=== PATIENT | male | born 2000 | race Caucasian/White ===

== ENCOUNTER → 2020-08-06 12:09 | Outpatient (CLI) | payer BC, SELFPAY | PROVIDERS: Visit Provider Student in an Organized Health Care Education/Training Program | DX: R30.0 Dysuria (principal) | CPT/HCPCS: 87077; 87086 ==

== ENCOUNTER 2021-01-06 01:18 | Emergency (ER) | payer OTHER, MEDICAID, SELFPAY ==
--- NOTE | 2021-01-06 01:21 | ED_ITS ---
HPI - Chest Pain General Chief Complaint: Chest Pain Stated Complaint: Shortness of breath, bad chest pain vertigo Time Seen by Provider: 01/06/21 01:20 Source: patient and family Mode of arrival: Ambulatory Limitations: no limitations History of Present Illness HPI narrative: 20-year-old (he/him) presents with mother and chief complaint of a sharp and stabbing chest pain that started this evening at about 7:00 p.m.. He states that the pain is sharp and stabbing, made worse by lying flat, moving and taking a deep breath. Pain is improved by sitting still. Patient denies any radiation of pain nor history of the same. Patient denies any recent history, history of blood clots or cancer. He does take control however. Patient denies any significant shortness of breath, nausea or vomiting. Patient denies any relation to exertion or food and drink. Related Data Home Medications Medication Instructions Recorded Confirmed adderrall PO 08/06/20 08/06/20 androgel PO DAILY 08/06/20 08/06/20 finasteride PO 08/06/20 08/06/20 Previous Rx's Medication Instructions Recorded colchicine 0.6 mg PO BID #60 cap 01/06/21 ibuprofen 600 mg PO TID #90 tab 01/06/21 Allergies Allergy/AdvReac Type Severity Reaction Status Date / Time sulfamethoxazole Allergy Severe Anaphylaxis Verified 08/06/20 11:32 [From Bactrim] trimethoprim [From Bactrim] Allergy Severe Anaphylaxis Verified 08/06/20 11:32 Review of Systems Constitutional Constitutional: Denies chills, Denies fatigue, Denies fever(s), Denies frequent falls, Denies lethargy and Denies weakness Eyes Eyes: Denies change in vision, Denies eye discharge, Denies irritation and Denies loss of vision ENT Ears, Nose, Mouth, and Throat: Denies change in voice, Denies dizziness, Denies neck pain, Denies sore throat and Denies throat swelling Cardiovascular Cardiovascular: Reports chest pain, Denies irregular heart rhythm, Denies lightheadedness, Denies palpitations, Denies dyspnea, Denies dyspnea on exertion and Denies orthopnea Respiratory Respiratory: Denies cough, Denies dyspnea, Denies dyspnea on exertion and Denies wheezing Gastrointestinal Gastrointestinal: Denies abdominal pain, Denies change in bowel habits, Denies diarrhea, Denies nausea and Denies vomiting Musculoskeletal Musculoskeletal: Denies neck pain and Denies numbness Integumentary/Breasts Skin/Breast: Denies pruritus, Denies erythema, Denies rash and Denies wounds Neurologic Neurologic: Denies behavioral changes, Denies confusion, Denies dizziness, Denies frequent falls, Denies loss of vision, Denies numbness and Denies weakness Psychiatric Psychiatric: Denies anxiety, Denies behavioral changes, Denies confusion, Denies depression, Denies homicidal ideation and Denies suicidal ideation Endocrine Endocrine: Denies fatigue, Denies flushing and Denies palpitations Hematologic/Lymphatic Hematologic/Lymphatic: Denies easy bruising Allergic/Immunologic Allergic/Immunologic: Denies urticaria, Denies throat swelling and Denies wheezing Patient History Social History Smoking Status: Never smoker Smoking Status: Never smoker Exam Narrative Exam Narrative: GENERAL: [20] year old patient appears stated age. Well- nourished, well-developed patient, in mild distress. HEAD: Atraumatic. Normocephalic. EYES: Pupils equal round and reactive. Extraocular motions intact. No scleral icterus. No injection or drainage. ENT: Nose without bleeding, purulent drainage. Throat without erythema, tonsillar hypertrophy or exudate. Airway patent. NECK: Trachea midline. Non tender CARDIOVASCULAR: Regular rate and rhythm without murmurs, gallops, or rubs. RESPIRATORY: Clear to auscultation. Breath sounds equal bilaterally. No wheezes, rales, or rhonchi. GASTROINTESTINAL: Abdomen soft, non-tender, nondistended. EXTREMITIES: No edema or joint tenderness. BACK: Nontender without deformity or crepitance. No flank tenderness. NEURO: AOx3. SKIN: No rash or erythema of visible areas Initial Vital Signs Initial Vital Signs: Vital Signs Temperature 97.7 F 01/06/21 01:26 Pulse Rate 90 01/06/21 01:26 Respiratory Rate 20 01/06/21 01:26 Blood Pressure 142/77 H 01/06/21 01:26 Pulse Oximetry 95 01/06/21 01:26 Course Course Course Narrative: Patient is feeling much better after above-stated therapies. We have had extensive discussion about potential diagnoses including but not limited to pulmonary embolism (thought very unlikely given negative D-dimer), pneumonia (thought unlikely given lack of fever, productive cough or findings on chest x-ray or exam), pleurisy, GI disease including gallbladder or pancreatitis (thought unlikely given lack of reproducible pain on palpation or lab findings), versus cardiac ischemia thought unlikely due to lack of ischemic components to physical exam, EKG and negative troponin. Extensive discussion with the patient about the most likely diagnosis and he and mother express unde rstanding and agreement with the diagnosis and plan. They have been given return precautions and have a questions answered to their apparent satisfaction. Orders Ordered: ED Orders 01/06/21 01:31 C-Reactive Protein Quant Stat 01/06/21 01:32 XR chest 1V Stat Complete Blood Count AUTO DIFF Stat EKG-12 Lead Stat 01/06/21 01:35 Comprehensive Metabolic Panel Stat D Dimer Stat Erythrocyte Sedimentation Rate Stat Lipase Stat NT-proBNP (BNP-Adult 18+) Stat Partial Thromboplastin Time Stat Prothrombin Time INR Stat Troponin & CK Cardiac Panel Stat Discontinued Medications Colchicine (Colchicine 0.6 Mg Tablet) 0.6 mg PO NOW ONE Stop: 01/06/21 02:08 Last Admin: 01/06/21 02:21 Dose: 0.6 mg Documented by: Sodium Chloride (Normal Saline 0.9%) 1,000 mls @ 1,000 mls/hr IV BOLUS ONE Stop: 01/06/21 02:30 Last Admin: 01/06/21 01:46 Dose: 1,000 mls/hr Documented by: Ketorolac Tromethamine (Ketorolac 60 Mg/2 Ml Vial) 15 mg IV NOW ONE Stop: 01/06/21 01:32 Last Admin: 01/06/21 01:46 Dose: 15 mg Documented by: Vital Signs Vital signs: Vital Signs - 8 hr 01/06/21 01:26 01/06/21 01:38 01/06/21 02:00 Temperature 97.7 F Pulse Rate 90 87 73 Respiratory Rate 20 9 L 17 Blood Pressure 142/77 H Pulse Oximetry 95 98 98 01/06/21 02:30 01/06/21 02:46 Temperature Pulse Rate 72 Respiratory Rate 15 Blood Pressure 101/56 L Pulse Oximetry 99 MDM - Chest Pain Lab Data Result diagrams: 01/06/21 01:35 01/06/21 01:35 Labs: Lab Results 04/27/21 04/27/21 04/27/21 Range/Units 01:35 01:35 01:35 WBC 10.6 (4.5-11.0) X10^3/uL RBC 4.88 (4.5-5.9) X10^6/uL Hgb 13.3 L (13.5-17.5) g/dL Hct 40.4 L (41-53) % MCV 82.8 (80-100) fL MCH 27.3 (26-34) PG MCHC 33.0 (30-36) % RDW 13.2 (11.6-14.8) % Plt Count 364 (150-400) X10^3/uL Neut % (Auto) 61.3 (50-75) % Lymph % (Auto) 30.3 (25-40) % Chaves % (Auto) 6.8 (3-14) % Eos % (Auto) 0.6 L (2-4) % Baso % (Auto) 1.0 (0-2) % Neut # (Auto) 6500 (9240-2013) /uL Lymph # (Auto) 3200 (6473-0733) /uL Chaves # (Auto) 700 (0-900) /uL Eos # (Auto) 100 (0-450) /uL Baso # (Auto) 100 (0-100) /uL ESR 29 H (0-15) MM/HR PT (10.1-12.7) SECONDS INR (0.9-1.3) APTT (26.4-36.2) SECONDS D-Dimer (<230) ng/mL Sodium (137-145) mmol/L Potassium (3.4-5.1) mmol/L Chloride (98-107) mmol/L Carbon Dioxide (22-32) mmol/L BUN (9-20) mg/dL Creatinine (0.66-1.25) mg/dL Estimated GFR (>60) mL/min BUN/Creatinine Ratio (6-22) Glucose (70-100) mg/dL Calcium (8.4-10.2) mg/dL Total Bilirubin (0.2-1.3) mg/dL AST (17-59) IU/L ALT (<50) IU/L Alkaline Phosphatase (38-126) U/L Total Creatine Kinase (55-170) U/L CK-MB (CK-2) CK-MB (CK-2) Rel Index Troponin I (0.01-0.034) ng/mL C-Reactive Protein 2.2 H (<1.0) mg/dL NT-Pro-B Natriuret Pep (<125) pg/mL Total Protein (6.3-8.2) g/dL Albumin (3.5-5.0) g/dL Globulin (1.7-4.1) g/dL Albumin/Globulin Ratio (1.0-2.8) Lipase (23-300) U/L 01/06/21 01/06/21 01/06/21 Range/Units 01:35 01:35 01:35 WBC (4.5-11.0) X10^3/uL RBC (4.5-5.9) X10^6/uL Hgb (13.5-17.5) g/dL Hct (41-53) % MCV (80-100) fL MCH (26-34) PG MCHC (30-36) % RDW (11.6-14.8) % Plt Count (150-400) X10^3/uL Neut % (Auto) (50-75) % Lymph % (Auto) (25-40) % Chaves % (Auto) (3-14) % Eos % (Auto) (2-4) % Baso % (Auto) (0-2) % Neut # (Auto) (5807-3126) /uL Lymph # (Auto) (7479-8235) /uL Chaves # (Auto) (0-900) /uL Eos # (Auto) (0-450) /uL Baso # (Auto) (0-100) /uL ESR (0-15) MM/HR PT 12.7 (10.1-12.7) SECONDS INR 1.1 (0.9-1.3) APTT 33 (26.4-36.2) SECONDS D-Dimer < 200 (<230) ng/mL Sodium 139 (137-145) mmol/L Potassium 3.8 (3.4-5.1) mmol/L Chloride 106 (98-107) mmol/L Carbon Dioxide 24 (22-32) mmol/L BUN 9 (9-20) mg/dL Creatinine 0.71 (0.66-1.25) mg/dL Estimated GFR > 60.0 (>60) mL/min BUN/Creatinine Ratio 12.7 (6-22) Glucose 88 (70-100) mg/dL Calcium 9.3 (8.4-10.2) mg/dL Total Bilirubin 0.3 (0.2-1.3) mg/dL AST 26 (17-59) IU/L ALT 32 (<50) IU/L Alkaline Phosphatase 64 (38-126) U/L Total Creatine Kinase 33 L (55-170) U/L CK-MB (CK-2) TNP CK-MB (CK-2) Rel Index TNP Troponin I < 0.012 (0.01-0.034) ng/mL C-Reactive Protein (<1.0) mg/dL NT-Pro-B Natriuret Pep 38 (<125) pg/mL Total Protein 7.9 (6.3-8.2) g/dL Albumin 4.4 (3.5-5.0) g/dL Globulin 3.5 (1.7-4.1) g/dL Albumin/Globulin Ratio 1.3 (1.0-2.8) Lipase 63 (23-300) U/L Imaging Data Chest x-ray: Radiologist's Impression: No acute process ECG Data Interpretation: EKG is normal sinus rhythm rate [ 94] and free of any signs of ischemia or ectopy. Minor widespread ST elevation with associated VT depressions. No T wave inversions Discharge Plan Departure Patient Disposition: Home Clinical Impression: Pericarditis Qualifiers: Pericarditis type: unspecified type Chronicity: acute Qualified Code(s): I30.9 - Acute pericarditis, unspecified Instructions: Pericarditis -- Adult Activity Restrictions/Additional Instructions: *You have been diagnosed with [acute chest pain, your story, labs, EKG are most consistent with pericarditis] *What to do: *Take medications as directed: Prescriptions sent to [facility] *Follow up with your primary care provider in 2-3 days, call for an appointment. Let them know you were seen in the Emergency Department and that we ask that you be seen in follow up *Return to ER if you should have any new, worsening or concerning symptoms, such as [increasing pain, shortness of breath, fever, shaking chills or other bothersome symptoms] Prescriptions: New colchicine 0.6 mg capsule 0.6 mg PO BID Qty: 60 RF: 0 ibuprofen 600 mg tablet 600 mg PO TID Qty: 90 RF: 0 No Action adderrall 30 mg tablet PO RF: 0 finasteride 1 mg tablet PO RF: 0 androgel 40.5 mg tablet PO DAILY RF: 0 Referrals: Miscellaneous,Doctor, [Primary Care Provider] -
[2021-01-06 01:26] VITALS: BP 142/77; PULSE 90; RESP 20; TEMP 36.5; O2SAT 95; BMI 32.5
--- NOTE | 2021-01-06 01:32 | DI.RAD.S_ITS ---
PROCEDURE: XR CHEST 1V INDICATIONS: chest pain TECHNIQUE: One view of the chest was acquired. COMPARISON: None. FINDINGS: Surgical changes and devices: None. Lungs and pleura: Lungs are clear. No pleural effusions or pneumothorax. Mediastinum: Mediastinal contours appear normal. Heart size is normal. Bones and chest wall: No suspicious bony lesions. Overlying soft tissues appear unremarkable. IMPRESSION: Normal for age, source of current chest pain symptoms is not seen. Dictated by: Demetrio Plascencia M.D. on 01/06/2021 at 9:05 Approved by: Demetrio Plascencia M.D. on 01/06/2021 at 9:05
[2021-01-06 01:38] VITALS: PULSE 87; RESP 9; O2SAT 98
[2021-01-06] MEDS: SODIUM CHLORIDE 0.9% 1,000 ML 1000 ML IV (01:46)
[2021-01-06] MEDS: KETOROLAC 60 MG/2 ML VIAL 15 MG IV (01:46)
[2021-01-06 01:48] LABS: Add Manual Diff / Slide Review NO; Basophils Absolute Auto 100 /uL (0-100); Eosinophils Absolute Auto 100 /uL (0-450); Eosinophils Percent Auto 0.6 % (2-4); Hematocrit 40.4 % (41-53); Hemoglobin 13.3 g/dL (13.5-17.5); Lymphocytes Absolute Auto 3200 /uL (1100-4500); Lymphocytes Percent Auto 30.3 % (25-40); Mean Corpuscular Hemoglobin 27.3 PG (26-34); Mean Corpuscular Volume 82.8 fL (80-100); Monocytes Absolute Auto 700 /uL (0-900); Monocytes Percent Auto 6.8 % (3-14); Neutrophils Absolute Auto 6500 /uL (1500-7000); Neutrophils Percent Auto 61.3 % (50-75); Platelet Count 364 X10^3/uL (150-400); Red Blood Cell Count 4.88 X10^6/uL (4.5-5.9); Red Cell Distribution Width 13.2 % (11.6-14.8); White Blood Cell Count 10.6 X10^3/uL (4.5-11.0)
[2021-01-06 01:52] LABS: INR 1.1 (0.9-1.3); Prothrombin Time 12.7 SECONDS (10.1-12.7)
[2021-01-06 01:56] LABS: Alanine Aminotransferase 32 IU/L (<50); Albumin 4.4 g/dL (3.5-5.0); Albumin Globulin Ratio 1.3 (1.0-2.8); Alkaline Phosphatase 64 U/L (38-126); Aspartate Aminotransferase 26 IU/L (17-59); BUN Creatinine Ratio 12.7 (6-22); Bilirubin Total 0.3 mg/dL (0.2-1.3); Blood Urea Nitrogen 9 mg/dL (9-20); Calcium 9.3 mg/dL (8.4-10.2); Carbon Dioxide 24 mmol/L (22-32); Chloride 106 mmol/L (98-107); Creatine Kinase 33 U/L (55-170); Estimated Glomerular Filt Rate > 60.0 mL/min (>60); Globulin 3.5 g/dL (1.7-4.1); Glucose 88 mg/dL (70-100); HEMOLYSIS < 15 (0-50); Lipase 63 U/L (23-300); Potassium 3.8 mmol/L (3.4-5.1); Sodium 139 mmol/L (137-145); Total Protein 7.9 g/dL (6.3-8.2)
[2021-01-06 01:57] LABS: C-Reactive Protein Quant 2.2 mg/dL (<1.0)
[2021-01-06 02:00] VITALS: PULSE 73; RESP 17; O2SAT 98
[2021-01-06 02:02] LABS: PTT Partial Thromboplastin Tim 33 SECONDS (26.4-36.2)
[2021-01-06 02:03] LABS: Erythrocyte Sedimentation Rate 29 MM/HR (0-15)
[2021-01-06 02:08] LABS: NT-proBNP (BNP-Adult 18+) 38 pg/mL (<125); Troponin I < 0.012 ng/mL (0.01-0.034)
[2021-01-06 02:12] LABS: D Dimer < 200 ng/mL (<230)
[2021-01-06] MEDS: COLCHICINE 0.6 MG TABLET PO (02:21)
[2021-01-06 02:30] VITALS: PULSE 72; RESP 15; O2SAT 99
[2021-01-06 02:46] VITALS: BP 101/56
== END 2021-01-06 02:55 | disposition home or self-care (01) ==
PROVIDERS: Emergency Provider Emergency Medicine
DX: I30.9 Acute pericarditis, unspecified (principal); R06.02 Shortness of breath
CPT/HCPCS: 36415; 71045; 80053; 82550; 83690; 83880; 84484; 85025; 85379; 85610; 85651; 85730; 86140; 93005; 96361; 96374; 99284; J1885